=== PATIENT | male | born 1945 | race Caucasian/White ===

== ENCOUNTER → 2016-03-27 | Outpatient (CLI) | payer OTHER | LOC: CAT 09:49 | DX: M47.26 Other spondylosis with radiculopathy, lumbar region (principal); M48.06 Spinal stenosis, lumbar region; M54.5 Low back pain ==

== ENCOUNTER → 2016-07-12 | Outpatient (CLI) | payer OTHER ==
[~2016-07-12] VITALS: Ht 180.3 cm; Wt 79.8 kg
[~2016-07-12] MED LIST: ALLOPURINOL 10100 M1 PO; ASPIR 8181 MG PO; ATORVASTATIN CA80 MG PO; AVODART0.5 MG PO; COQ-10100 MG PO; FLOMAX0.4 MG PO; GABAPENTIN 100100 MG PO; GLUCOSAMINE-CH1 EA33 PO; LISINOPRIL20 MG PO; LOPRESSOR25 PO; VITAMIN B COMP1 EACH PO; VITAMIN D1000 UNI1 PO
--- NOTE | ~2016-07-12 | HPC ---
[facility] [address] [place] [address] PAIN MANAGEMENT CONSULTATION Name: HASMUKH AVERY Room #: [facility] Verena#: [id number] Admission: 07/12/16 Attend Phys: Mikhail Gallgaher DO Discharge: Date of : 41 Report #: [id number] THIS REPORT FOR: //name// CC: Emilio Gallagher The patient is a 71-year-old gentleman seen in consultation at request of Dr. Weeks and Dr. Maldonado for evaluation of pain, low back, right hip and leg. The patient notes he has burning dysesthesia. It has been there for many years. Got worse in February with primary pain in the hip. He had had a prior series of epidural injections back in 2006 with good efficacy. Notes pain is steady and throbbing and burning. He is currently taking gabapentin and meloxicam. Notes pain is exacerbated with standing, gets some relief when he is recumbent. Denies any paresthesia, though he does have some burning dysesthesia in the leg. No weakness or bowel or bladder continence changes. Rates pain anywhere from 4-8 on a 0-10 visual analog scale. REVIEW OF SYSTEMS: Complete review of systems attached to chart and was gone over with the patient. He is , does not smoke or drink alcohol to excess. He has enjoyed remarkably good health, though he did have coronary artery bypass surgery about 11 years ago and since that time, he has really had no significant issues. 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 Pain impact score is fairly low, averaging about 4.2 for all indices queried. PHYSICAL EXAMINATION: Reveals a trim 5-foot 11-inch, 176-pound gentleman appearing somewhat younger than stated age. BMI is 24.6 kilograms per meter squared. Blood pressure is 150/84, pulse 50, respirations 16. Cranial nerves 2-12 grossly intact. Speech is fluent. Alert and oriented to person, place and time, judged to be a reasonable historian. Thyroid is unremarkable. Cervical range of motion is full. Upper extremity strength is preserved. Heart is regular and rhythmical without murmur. Lungs are clear to auscultation. Rises from chair using armrest. Has a mildly antalgic gait. Lumbar flexion is good to 90 degrees. Right ankle has some osseous hypertrophy, compatible with prior ORIF. Slight decreased right hip flexion strength. Patellar and Achilles reflexes are preserved. Positive straight leg raise is equivocal on the right. DIAGNOSTIC STUDIES: Include MRI of the lumbar spine from 05/04/2013 noting thickening of the thecal sac at L3-L4 and L4-L5 with right neural foraminal narrowing at L4-L5 due to hypertrophy of facets. ASSESSMENT: Symptomatic lumbar radiculopathy, component of lumbar spondylosis. RECOMMENDATION: 1. Continue meloxicam on a nondaily basis due to concerns for a class recommendation for nonsteroid anti-inflammatory agents (NSAID) and coronary artery disease by history. [address] [address] PAIN MANAGEMENT CONSULTATION Name: HASMUKH AVERY Room #: LAURA Albarado#: [id number] Admission: 07/12/16 Attend Phys: Mikhail Gallagher DO Discharge: Date of : 41 Report #: [id number] 2. Epidural injection under fluoroscopy today. 3. Follow up in 3-4 weeks for reevaluation. Thanks for allowing me to participate in the patient's care. I will keep you abreast of his progress. PROCEDURE NOTE: Lumbar epidural injection under fluoroscopy. PROCEDURE NOTE: After both written and informed consent to include risk of spinal cord damage, increased pain, weakness and dural puncture, the patient was taken to the fluoroscopy suite, placed in the prone position. After sterile prep and drape, a skin wheal with lidocaine was raised. A 22-gauge epidural Tuohy needle was inserted in the midline at L4-L5 with good loss to resistance. Negative aspiration for cerebrospinal fluid or blood was noted. Then 1 mL of Omnipaque under biplanar fluoroscopy showed good spread within the epidural space. This was followed with 80 mg of triamcinolone plus 1 mL of 1.5% preservative-free Xylocaine, 0.5 mL Xylocaine was then injected to flush the needle; it was removed. The patient was monitored for an appropriate period of time and discharged in good and stable condition. <ELECTRONICALLY SIGNED> By: Mikhail Gallagher DO 07/13/16 [id number] [id number] Mikhail Gallagher DO /nt
[2016-07-12 11:48] VITALS: BP 150/84
== END ==
LOC: PAIN 07:27
DX: M47.26 Other spondylosis with radiculopathy, lumbar region (principal); Z95.1 Presence of aortocoronary bypass graft

== ENCOUNTER → 2019-04-28 | Outpatient (CLI) | payer OTHER | LOC: SJCVC 13:39 → SJCVCIMAG 13:39 | DX: I65.23 Occlusion and stenosis of bilateral carotid arteries (principal); I70.0 Atherosclerosis of aorta; I73.9 Peripheral vascular disease, unspecified; I10 Essential (primary) hypertension; I25.10 Atherosclerotic heart disease of native coronary artery without angina pectoris; E78.5 Hyperlipidemia, unspecified; Z95.1 Presence of aortocoronary bypass graft; Z79.899 Other long term (current) drug therapy; Z86.73 Personal history of transient ischemic attack (TIA), and cerebral infarction without residual deficits; Z72.0 Tobacco use ==

== ENCOUNTER → 2019-05-13 | Outpatient (CLI) | payer OTHER ==
[~2019-05-13] MED LIST changes: +LISINOPRIL40 MG PO; +MELOXICAM15 MG PO; +VITAMIN E1000 UNIT PO
== END ==
LOC: SJCVCIMAG 10:45
DX: Z01.810 Encounter for preprocedural cardiovascular examination (principal); I25.810 Atherosclerosis of coronary artery bypass graft(s) without angina pectoris; I08.1 Rheumatic disorders of both mitral and tricuspid valves; I21.29 ST elevation (STEMI) myocardial infarction involving other sites; R00.1 Bradycardia, unspecified; I77.810 Thoracic aortic ectasia; I11.9 Hypertensive heart disease without heart failure; E78.5 Hyperlipidemia, unspecified; Z79.899 Other long term (current) drug therapy; Z95.1 Presence of aortocoronary bypass graft

== ENCOUNTER 2019-07-10 12:22 | Day surgery (SDC) | payer OTHER ==
[~2019-07-10] VITALS: Ht 180.3 cm; Wt 80.3 kg
--- NOTE | ~2019-07-10 | O ---
[facility] [place] [address] OPERATIVE REPORT Name: HASMUKH AVERY Room #: 150-4 [facility] IN M.R.#: [id number] Admission: 07/10/19 Attend Phys: Davian Duggan MD Discharge: Date of : 41 Report #: [id number] THIS REPORT FOR: cc: Emilio Weeks,Davian Hung MD ~ CC: Davian Weeks DATE OF SERVICE: 07/10/2019 PREOPERATIVE DIAGNOSIS: Right ankle osteoarthritis. POSTOPERATIVE DIAGNOSIS: Right ankle osteoarthritis. PROCEDURE: Right ankle total ankle arthroplasty. SURGEON: Dr. Davian Duggan. GANG PUSHER: Deedee Ruiz. ANESTHESIA: General. ESTIMATED BLOOD LOSS: 100 mL. DRAINS: No drains. TOURNIQUET TIME: 130 minutes total. DESCRIPTION OF PROCEDURE: The patient brought to the operating room where he was placed under general anesthesia. Once under adequate general anesthesia, his right lower extremity was prepped and draped in sterile manner. The extremity was elevated, exsanguinated, tourniquet placed at 300 mmHg. A pin perpendicular to the tibial tubercle was then placed utilizing fluoroscopic guidance. An anterior incision over the tibiotalar joint between the EHL and the anterior tibial tendon was then made, sweeping the neurovascular bundle laterally. Entrance into the fascia was achieved and exposure of the tibiotalar joint was achieved after incising the joint capsule. Once exposed, the guide for the tibial cut was then placed. Utilizing fluoroscopic guidance, this was then manipulated to the satisfactory level checked in both the coronal and sagittal planes. Subsequently, a 5 mm distal tibial bone cut was made. This did not appear to be enough; however, a separate second bone cut of approximately 3 mm was made. Once complete, the distal tibial articular surface was removed utilizing curettes, osteotomes and a rongeur to remove the bony pieces. The talar cut was then prepared for and the guide placed and subsequently the talar cut was made. We then were able to size the talus as a [facility] [address] [place] [address] OPERATIVE REPORT Name: HASMUKH AVERY Room #: 150-4 [facility] IN M.R.#: [id number] Admission: 07/10/19 Attend Phys: Davian Duggan MD Discharge: Date of : 41 Report #: [id number] medium and ____ was then placed. The posterior talar cuts and the anterior chamfer cuts were then made along with both the medial and lateral townsend. Once complete, the talus was then sized and the talus was then broached for and noted the talus component was then placed. The tibial component was a size of the extra-large and subsequently the 2 ____ were drilled for and subsequently the tibial component was placed. The trials were then utilized and a size 10 trial was the one that was chosen once complete. The ankle had sufficient range of motion and therefore, the wound was then irrigated copiously. Final x-rays were taken. A size 9 polyethylene component was then placed after placement of the tibial component, which was an extra-large and the wound was then irrigated copiously and closed in layers with 0 Vicryl in deep layers, 2-0 Vicryl in subcutaneous tissue and 3-0 nylon was used for the skin. The wound was dressed with Xeroform, 4 x 4s, and sterile soft compressive dressing and a short leg cast was placed. Tourniquet was let down initially at 1 hour and 15 minutes and then replaced back up for another 2 hours. Tourniquet was let down at 115 minutes and then let down during the end of the procedure. Tourniquet had been down for approximately 1 hour when it was placed back up during wound closure for another 15 minutes for a total of 130 minutes. Wounds were dressed with Xeroform, 4 x 4s, and a short leg cast was placed. Tourniquet was let down. There were no complications from the procedure. The patient tolerated the procedure well and went to the recovery room without incident. By: 1427 [id number] Davian Duggan MD /nt
[2019-07-10 08:03] VITALS: BP 190/84
[~2019-07-10 12:22] MED LIST changes: -VITAMIN D1000 UNI1 PO; +VITAMIN D325 MC3 PO
[2019-07-10] MEDS ORDERED: PERCOCET 7.5-31 EAC1 PO (14:17)
[2019-07-10] MEDS ORDERED: LITE COAT ASPI325 MG PO (14:18)
[2019-07-10 15:34] VITALS: BP 190/84
== END 2019-07-10 16:15 | disposition home or self-care (01) ==
LOC: PRE 12:22 → OR 12:22 → EDSTATUS 15:04 → OR 16:15 → TBA 16:15
DX: M19.071 Primary osteoarthritis, right ankle and foot (principal); I10 Essential (primary) hypertension; E78.5 Hyperlipidemia, unspecified; Z98.890 Other specified postprocedural states; Z79.899 Other long term (current) drug therapy; Z95.1 Presence of aortocoronary bypass graft; Z85.828 Personal history of other malignant neoplasm of skin; Z79.82 Long term (current) use of aspirin
CPT/HCPCS: 50010; 50101; 50386; 51412; 52120; 56524; 56527; 57091; 57180; 57913; 57914; 57915; 62110; 62900; 64039; 70005

== ENCOUNTER → 2019-11-03 | Outpatient (CLI) | payer OTHER ==
[~2019-11-03] MED LIST changes: +LITE COAT ASPI325 MG PO; +PERCOCET 7.5-31 EAC1 PO
== END ==
LOC: SJCVC 11:10
PROVIDERS: ATTEND Internal Medicine
DX: R00.1 Bradycardia, unspecified (principal); I25.10 Atherosclerotic heart disease of native coronary artery without angina pectoris; I10 Essential (primary) hypertension; E78.5 Hyperlipidemia, unspecified; G45.9 Transient cerebral ischemic attack, unspecified; I70.0 Atherosclerosis of aorta; I71.2 Thoracic aortic aneurysm, without rupture; F17.200 Nicotine dependence, unspecified, uncomplicated; Z95.1 Presence of aortocoronary bypass graft

== ENCOUNTER → 2020-11-02 | Outpatient (CLI) | payer OTHER | LOC: SJCVCIMAG 11-01 10:19 | PROVIDERS: ATTEND Internal Medicine | DX: R94.31 Abnormal electrocardiogram [ECG] [EKG] (principal); I08.3 Combined rheumatic disorders of mitral, aortic and tricuspid valves; I44.0 Atrioventricular block, first degree; R00.1 Bradycardia, unspecified; I25.10 Atherosclerotic heart disease of native coronary artery without angina pectoris; I10 Essential (primary) hypertension; E78.5 Hyperlipidemia, unspecified; G45.9 Transient cerebral ischemic attack, unspecified; I71.2 Thoracic aortic aneurysm, without rupture; M10.9 Gout, unspecified; Z95.1 Presence of aortocoronary bypass graft; Z79.82 Long term (current) use of aspirin; Z87.891 Personal history of nicotine dependence; Z72.89 Other problems related to lifestyle; Z86.73 Personal history of transient ischemic attack (TIA), and cerebral infarction without residual deficits ==